=== PATIENT | female | born 1935 | race African-American/Black ===

== ENCOUNTER 2018-12-28 18:06 | Inpatient (IN) | payer OTHER ==
[~2018-12-28] VITALS: Ht 167.6 cm; Wt 70.3 kg
[2018-12-28 18:06] VITALS: BP_SYST 151
[2018-12-28] MEDS ORDERED: ACETAMINOPHEN 500 MG TABLET PO ONE (18:15)
[2018-12-28 18:28] LABS: BASOPHILS # (AUTO) 0.1 K/uL (0.0-0.2); BASOPHILS % (AUTO) 0.7 % (0.0-2.0); HEMATOCRIT 31.1 % (36-48); HEMOGLOBIN 10.3 g/dL (12.0-16.0); LYMPHOCYTES # (AUTO) 1.1 K/uL (1.0-5.5); LYMPHOCYTES % (AUTO) 7.5 % (20.5-51.5); MEAN CORPUSCULAR HEMOGLOBIN 26 pg (27-31); MEAN CORPUSCULAR HGB CONC 33 % (32-36); MEAN CORPUSCULAR VOLUME 80 fL (79.0-98.0); MONOCYTES # (AUTO) 1.4 K/uL (0.0-1.0); MONOCYTES % (AUTO) 9.5 % (1.7-9.3); NEUTROPHILS % (AUTO) 82.3 % (40.0-70.0); PLATELET COUNT (AUTO) 228 K/uL (130-430); RED BLOOD CELL COUNT(AUTO) 3.91 MIL/uL (4.2-6.2); RED CELL DISTRIBUTION WIDTH 13.6 % (9.0-15.0); WHITE BLOOD COUNT (AUTO) 14.6 K/uL (4.8-10.8)
[2018-12-28 18:42] LABS: ANION GAP 6 (5-15); CHLORIDE 98 mmol/L (98-107); CREATININE 1.48 mg/dL (0.55-1.30); GLUCOSE 243 mg/dL (70-99); POTASSIUM 3.3 mmol/L (3.5-5.1); SODIUM SERUM 133 mmol/L (136-145); UREA NITROGEN, BLOOD 30 mg/dL (8-21)
[2018-12-28] MEDS ORDERED: NS 500 ML IV ONE (18:45)
[2018-12-28] MEDS ORDERED: ACETAMINOPHEN 650 MG SUPP.RECT RC ONE ×2 (18:45→18:57)
[2018-12-28 18:46] LABS: INR 1.1 (0.8-1.2); PROTHROMBIN TIME 11.2 SECS (9.5-12.5)
[2018-12-28 18:47] LABS: ALANINE AMINOTRANSFERASE 39 U/L (12-78); ALBUMIN 2.9 g/dL (3.4-4.8); ASPARTATE AMINOTRANSFERASE 29 U/L (10-37); TOTAL BILIRUBIN 0.8 mg/dL (0.0-1.0)
[2018-12-28 18:55] LABS: BILIRUBIN,URINE NEGATIVE (NEGATIVE); BLOOD, URINE 2+ (NEGATIVE); CLARITY/URINE CLEAR (CLEAR); COLOR,URINE YELLOW (YELLOW); GLUCOSE,URINE 2+ (NEGATIVE); KETONES,URINE NEGATIVE (NEGATIVE); LEUKOCYTE ESTERASE ,URINE NEGATIVE (NEGATIVE); NITRITE, URINE NEGATIVE (NEGATIVE); PH,URINE 5.5 (5.0-8.0); PROTEIN URINE 3+ (NEGATIVE); UROBILINOGEN,URINE 0.2 (0.2-1.0)
[2018-12-28 19:11] LABS: BACTERIA,URINE MODERATE /HPF (None Seen); WBC,URINE 0-3 /HPF (0-3)
[2018-12-28] MEDS ORDERED: PIPERACILLIN/TAZO 3.375 GM in NS 50 ML IV ONE (19:15)
[2018-12-28] MEDS ORDERED: ATOR20TA64 PO (19:30)
[2018-12-28] MEDS ORDERED: LOSA25TA3 PO (19:30)
[2018-12-28] MEDS ORDERED: MECL-110 PO (19:30)
[2018-12-28] MEDS ORDERED: SENN8.6T19 PO (19:30)
[2018-12-28] MEDS ORDERED: AMLO5TAB4 PO (19:30)
[2018-12-28] MEDS ORDERED: INSU100V9 SQ (19:30)
[2018-12-28] MEDS ORDERED: POLY17PO4 PO (19:30)
[2018-12-28] MEDS ORDERED: VITD2000 PO (19:30)
[2018-12-28] MEDS ORDERED: ACET-2165 PO (19:31)
[2018-12-28] MEDS ORDERED: DOCU-144 PO (19:31)
[2018-12-28] MEDS ORDERED: SSNOVOLOG SUBCUT (19:31)
[2018-12-28] MEDS ORDERED: FLEETMO RC (19:31)
[2018-12-28] MEDS ORDERED: MOM PO (19:31)
[2018-12-28] MEDS ORDERED: BISA-79 RC (19:31)
[2018-12-28] MEDS ORDERED: PIPERACILLIN/TAZOBACTAM 3.375 GM/VIAL (ZOSYN) IV ONE (19:52)
[2018-12-28 20:47] VITALS: BP_SYST 130
[2018-12-28] MEDS: NACL 0.9% 1,000 ML IV SCH (21:03)
[2018-12-28] MEDS ORDERED: PIPERACILLIN/TAZOBACTAM 2.25 GM VIAL IV ONE (23:21)
[2018-12-28] MEDS: ZOSYN (PIPERACILLIN/TAZO) 2.25 GM in DEX-ISO (50ml) IV SCH (23:25)
[2018-12-29] VITALS (7 sets, daily range): BP systolic 138–182
[2018-12-29] MEDS: ZOSYN (PIPERACILLIN/TAZO) 2.25 GM in DEX-ISO (50ml) IV SCH (05:07)
[2018-12-29] MEDS: ACETAMINOPHEN 325 MG TABLET PO PRN (09:23)
[2018-12-29] MEDS ORDERED: DOCUSATE SODIUM 100 MG CAPSULE PO PRN (09:30)
[2018-12-29] MEDS ORDERED: ACETAMINOPHEN 325 MG TABLET PO PRN ×2 (09:30)
[2018-12-29] MEDS ORDERED: DEXTROSE 50% JECT 50 ML DISP.SYRIN IVP PRN (09:45)
[2018-12-29] MEDS ORDERED: ALBUTEROL SULFATE 0.083% 2.5 MG/3 ML VIAL.NEB INH PRN (09:45)
[2018-12-29] MEDS: ALBUTEROL SULFATE 0.083% 2.5 MG/3 ML VIAL.NEB INH SCH ×4 (09:45→20:56)
[2018-12-29] MEDS ORDERED: IPRATROPIUM BROM 0.5 MG/2.5 ML VIAL.NEB (ATROVENT) INH PRN (09:45)
[2018-12-29] MEDS: IPRATROPIUM BROM 0.5 MG/2.5 ML VIAL.NEB (ATROVENT) INH SCH ×4 (09:45→20:56)
[2018-12-29] MEDS ORDERED: amLODIPine BESYLATE 5 MG TABLET PO ONE (10:00)
[2018-12-29] MEDS: NACL 0.9% 1,000 ML IV SCH ×2 (10:15→16:26)
[2018-12-29] MEDS: PIPERACILLIN/TAZOBACTAM 2.25 GM/ D5W 50 ML IV SCH ×4 (11:49→17:57)
[2018-12-29] MEDS: INSULIN REGULAR, HUMAN 100 UNITS/ML, 10 ML VIAL (humuLIN R) SUBCUT PRN ×2 (12:09→18:01)
[2018-12-29] MEDS: ATORVASTATIN 20 MG TABLET PO SCH (20:13)
[2018-12-30] MEDS: PIPERACILLIN/TAZOBACTAM 2.25 GM/ D5W 50 ML IV SCH ×8 (00:44→18:46)
[2018-12-30] MEDS: INSULIN REGULAR, HUMAN 100 UNITS/ML, 10 ML VIAL (humuLIN R) SUBCUT PRN ×4 (00:49→18:48)
[2018-12-30 01:40] VITALS: BP_SYST 138
[2018-12-30 07:16] LABS: BILIRUBIN,URINE NEGATIVE (NEGATIVE); BLOOD, URINE 2+ (NEGATIVE); CLARITY/URINE SL CLOUDY (CLEAR); COLOR,URINE YELLOW (YELLOW); GLUCOSE,URINE 1+ (NEGATIVE); KETONES,URINE TRACE (NEGATIVE); LEUKOCYTE ESTERASE ,URINE 1+ (NEGATIVE); NITRITE, URINE NEGATIVE (NEGATIVE); PH,URINE 5.5 (5.0-8.0); PROTEIN URINE 2+ (NEGATIVE); UROBILINOGEN,URINE 0.2 (0.2-1.0)
[2018-12-30 07:21] LABS: BASOPHILS % (AUTO) 0.3 % (0.0-2.0); EOSINOPHILS % (AUTO) 0.1 % (0.0-4.0); HEMATOCRIT 25.7 % (36-48); HEMOGLOBIN 8.4 g/dL (12.0-16.0); LYMPHOCYTES # (AUTO) 1.4 K/uL (1.0-5.5); MEAN CORPUSCULAR HEMOGLOBIN 26 pg (27-31); MEAN CORPUSCULAR HGB CONC 33 % (32-36); MEAN CORPUSCULAR VOLUME 81 fL (79.0-98.0); MONOCYTES # (AUTO) 1.1 K/uL (0.0-1.0); MONOCYTES % (AUTO) 9.3 % (1.7-9.3); NEUTROPHILS # (AUTO) 9.3 K/uL (1.8-7.7); NEUTROPHILS % (AUTO) 78.3 % (40.0-70.0); PLATELET COUNT (AUTO) 213 K/uL (130-430); RED BLOOD CELL COUNT(AUTO) 3.19 MIL/uL (4.2-6.2); RED CELL DISTRIBUTION WIDTH 13.9 % (9.0-15.0); WHITE BLOOD COUNT (AUTO) 11.9 K/uL (4.8-10.8)
[2018-12-30 07:45] VITALS: BP_SYST 154
[2018-12-30 07:45] LABS: ALANINE AMINOTRANSFERASE 25 U/L (12-78); ALBUMIN 2.1 g/dL (3.4-4.8); ANION GAP 6 (5-15); ASPARTATE AMINOTRANSFERASE 22 U/L (10-37); CALCIUM 8.1 mg/dL (8.4-11.0); CHLORIDE 103 mmol/L (98-107); GLUCOSE 281 mg/dL (70-99); POTASSIUM 3.5 mmol/L (3.5-5.1); SODIUM SERUM 134 mmol/L (136-145); TOTAL BILIRUBIN 0.5 mg/dL (0.0-1.0); UREA NITROGEN, BLOOD 37 mg/dL (8-21)
[2018-12-30] MEDS: IPRATROPIUM BROM 0.5 MG/2.5 ML VIAL.NEB (ATROVENT) INH SCH ×4 (08:16→20:27)
[2018-12-30] MEDS: ALBUTEROL SULFATE 0.083% 2.5 MG/3 ML VIAL.NEB INH SCH ×4 (08:16→20:27)
[2018-12-30 08:26] LABS: BACTERIA,URINE MODERATE /HPF (None Seen)
[2018-12-30] MEDS: amLODIPine BESYLATE 5 MG TABLET PO SCH (10:27)
[2018-12-30] MEDS: LOSARTAN POTASSIUM 25 MG TABLET PO SCH (10:27)
[2018-12-30] MEDS: INSULIN GLARGINE 100 UNITS/ML 10 ML VIAL SUBCUT SCH (10:29)
[2018-12-30 11:03] VITALS: BP_SYST 171
[2018-12-30 11:46] VITALS: BP_SYST 150
[2018-12-30] MEDS: NACL 0.9% 1,000 ML IV SCH (14:10)
[2018-12-30] MEDS: ACETAMINOPHEN 325 MG TABLET PO PRN (14:14)
[2018-12-30 15:24] VITALS: BP_SYST 153
[2018-12-30 20:00] VITALS: BP_SYST 144
[2018-12-30] MEDS: ATORVASTATIN 20 MG TABLET PO SCH (21:45)
[2018-12-31] MEDS: PIPERACILLIN/TAZOBACTAM 2.25 GM/ D5W 50 ML IV SCH ×4 (00:06→06:26)
[2018-12-31] MEDS: INSULIN REGULAR, HUMAN 100 UNITS/ML, 10 ML VIAL (humuLIN R) SUBCUT PRN ×4 (00:32→21:23)
[2018-12-31] MEDS: IPRATROPIUM BROM 0.5 MG/2.5 ML VIAL.NEB (ATROVENT) INH SCH ×5 (03:00→19:36)
[2018-12-31] MEDS: ALBUTEROL SULFATE 0.083% 2.5 MG/3 ML VIAL.NEB INH SCH ×4 (03:00→19:36)
[2018-12-31 03:06] VITALS: BP_SYST 147
[2018-12-31 07:57] LABS: BASOPHILS # (AUTO) 0.1 K/uL (0.0-0.2); BASOPHILS % (AUTO) 0.9 % (0.0-2.0); EOSINOPHILS % (AUTO) 0.5 % (0.0-4.0); HEMATOCRIT 23.9 % (36-48); HEMOGLOBIN 8.1 g/dL (12.0-16.0); LYMPHOCYTES # (AUTO) 1.3 K/uL (1.0-5.5); MEAN CORPUSCULAR HEMOGLOBIN 27 pg (27-31); MEAN CORPUSCULAR HGB CONC 34 % (32-36); MEAN CORPUSCULAR VOLUME 80 fL (79.0-98.0); MONOCYTES % (AUTO) 10.8 % (1.7-9.3); NEUTROPHILS # (AUTO) 6.5 K/uL (1.8-7.7); NEUTROPHILS % (AUTO) 72.8 % (40.0-70.0); PLATELET COUNT (AUTO) 204 K/uL (130-430); RED BLOOD CELL COUNT(AUTO) 2.99 MIL/uL (4.2-6.2); RED CELL DISTRIBUTION WIDTH 13.9 % (9.0-15.0)
[2018-12-31 08:01] LABS: ANION GAP 4 (5-15); CHLORIDE 104 mmol/L (98-107); CREATININE 1.16 mg/dL (0.55-1.30); GLUCOSE 206 mg/dL (70-99); POTASSIUM 3.7 mmol/L (3.5-5.1); SODIUM SERUM 134 mmol/L (136-145); UREA NITROGEN, BLOOD 34 mg/dL (8-21)
[2018-12-31 08:27] VITALS: BP_SYST 146
[2018-12-31] MEDS ORDERED: SIMETHICONE 80 MG TAB.CHEW PO PRN (08:45)
[2018-12-31] MEDS: LOSARTAN POTASSIUM 25 MG TABLET PO SCH (09:32)
[2018-12-31] MEDS: amLODIPine BESYLATE 5 MG TABLET PO SCH (09:34)
[2018-12-31 12:32] VITALS: BP_SYST 154
[2018-12-31] MEDS: NACL 0.9% 1,000 ML IV SCH (13:22)
[2018-12-31 16:47] VITALS: BP_SYST 158
[2018-12-31] MEDS: INSULIN GLARGINE 100 UNITS/ML 10 ML VIAL SUBCUT SCH (17:49)
[2018-12-31 20:00] VITALS: BP_SYST 148
[2018-12-31] MEDS: ATORVASTATIN 20 MG TABLET PO SCH (21:20)
[2018-12-31 23:40] VITALS: BP_SYST 144
[2019-01-01] MEDS: NACL 0.9% 1,000 ML IV SCH ×2 (03:41→10:35)
[2019-01-01] MEDS: ACETAMINOPHEN 325 MG TABLET PO PRN ×2 (03:45→10:41)
[2019-01-01 07:34] LABS: BASOPHILS # (AUTO) 0.1 K/uL (0.0-0.2); BASOPHILS % (AUTO) 0.8 % (0.0-2.0); EOSINOPHILS # (AUTO) 0.1 K/uL (0.0-0.4); EOSINOPHILS % (AUTO) 1.2 % (0.0-4.0); HEMATOCRIT 25.9 % (36-48); HEMOGLOBIN 8.7 g/dL (12.0-16.0); LYMPHOCYTES # (AUTO) 1.6 K/uL (1.0-5.5); MEAN CORPUSCULAR HEMOGLOBIN 27 pg (27-31); MEAN CORPUSCULAR HGB CONC 34 % (32-36); MEAN CORPUSCULAR VOLUME 80 fL (79.0-98.0); MONOCYTES % (AUTO) 11.3 % (1.7-9.3); NEUTROPHILS # (AUTO) 6.2 K/uL (1.8-7.7); NEUTROPHILS % (AUTO) 68.7 % (40.0-70.0); PLATELET COUNT (AUTO) 252 K/uL (130-430); RED BLOOD CELL COUNT(AUTO) 3.26 MIL/uL (4.2-6.2); RED CELL DISTRIBUTION WIDTH 13.7 % (9.0-15.0)
[2019-01-01] MEDS: IPRATROPIUM BROM 0.5 MG/2.5 ML VIAL.NEB (ATROVENT) INH SCH ×5 (07:49→23:00)
[2019-01-01] MEDS: ALBUTEROL SULFATE 0.083% 2.5 MG/3 ML VIAL.NEB INH SCH ×5 (07:49→23:00)
[2019-01-01 08:12] LABS: ALANINE AMINOTRANSFERASE 34 U/L (12-78); ALBUMIN 1.8 g/dL (3.4-4.8); ANION GAP 6 (5-15); ASPARTATE AMINOTRANSFERASE 41 U/L (10-37); CALCIUM 8.2 mg/dL (8.4-11.0); CHLORIDE 103 mmol/L (98-107); CREATININE 1.02 mg/dL (0.55-1.30); GLUCOSE 119 mg/dL (70-99); POTASSIUM 3.8 mmol/L (3.5-5.1); SODIUM SERUM 136 mmol/L (136-145); TOTAL BILIRUBIN 0.4 mg/dL (0.0-1.0); UREA NITROGEN, BLOOD 29 mg/dL (8-21)
[2019-01-01 08:20] VITALS: BP_SYST 161
[2019-01-01 10:29] LABS: TOTAL IRON BIND. CAPACITY 112 ug/dL (250-450)
[2019-01-01] MEDS: PANTOPRAZOLE SODIUM 40 MG/VIAL (PROTONIX) IVP SCH (10:36)
[2019-01-01] MEDS: MEMANTINE HCL 5 MG TABLET PO SCH (10:42)
[2019-01-01] MEDS: AZITHROMYCIN 250 MG TABLET PO SCH (10:42)
[2019-01-01] MEDS: amLODIPine BESYLATE 5 MG TABLET PO SCH (10:42)
[2019-01-01] MEDS: LOSARTAN POTASSIUM 25 MG TABLET PO SCH (10:43)
[2019-01-01] MEDS: INSULIN GLARGINE 100 UNITS/ML 10 ML VIAL SUBCUT SCH (11:58)
[2019-01-01 12:35] VITALS: BP_SYST 151; BP_SYST 160
[2019-01-01] MEDS: INSULIN REGULAR, HUMAN 100 UNITS/ML, 10 ML VIAL (humuLIN R) SUBCUT PRN ×3 (13:15→23:19)
[2019-01-01 14:08] VITALS: BP_SYST 160
[2019-01-01 15:07] VITALS: BP_SYST 135
[2019-01-01] MEDS: ATORVASTATIN 20 MG TABLET PO SCH (22:11)
[2019-01-01 23:58] VITALS: BP_SYST 152
[2019-01-02] MEDS: IPRATROPIUM BROM 0.5 MG/2.5 ML VIAL.NEB (ATROVENT) INH SCH ×6 (03:00→23:00)
[2019-01-02] MEDS: ALBUTEROL SULFATE 0.083% 2.5 MG/3 ML VIAL.NEB INH SCH ×6 (03:00→23:00)
[2019-01-02] MEDS: NACL 0.9% 1,000 ML IV SCH (05:55)
[2019-01-02] MEDS: INSULIN REGULAR, HUMAN 100 UNITS/ML, 10 ML VIAL (humuLIN R) SUBCUT PRN ×4 (06:04→23:41)
[2019-01-02 07:38] LABS: BASOPHILS # (AUTO) 0.1 K/uL (0.0-0.2); BASOPHILS % (AUTO) 0.8 % (0.0-2.0); EOSINOPHILS # (AUTO) 0.1 K/uL (0.0-0.4); EOSINOPHILS % (AUTO) 1.3 % (0.0-4.0); HEMATOCRIT 24.7 % (36-48); HEMOGLOBIN 8.4 g/dL (12.0-16.0); LYMPHOCYTES # (AUTO) 1.2 K/uL (1.0-5.5); LYMPHOCYTES % (AUTO) 12.7 % (20.5-51.5); MEAN CORPUSCULAR HEMOGLOBIN 27 pg (27-31); MEAN CORPUSCULAR HGB CONC 34 % (32-36); MEAN CORPUSCULAR VOLUME 79 fL (79.0-98.0); MONOCYTES # (AUTO) 0.9 K/uL (0.0-1.0); NEUTROPHILS % (AUTO) 75.2 % (40.0-70.0); PLATELET COUNT (AUTO) 286 K/uL (130-430); RED BLOOD CELL COUNT(AUTO) 3.12 MIL/uL (4.2-6.2); RED CELL DISTRIBUTION WIDTH 13.5 % (9.0-15.0); RETICULOCYTE COUNT 1.5 % (0.5-1.5); WHITE BLOOD COUNT (AUTO) 9.3 K/uL (4.8-10.8)
[2019-01-02 07:54] LABS: ALANINE AMINOTRANSFERASE 28 U/L (12-78); ALBUMIN 1.8 g/dL (3.4-4.8); ANION GAP 6 (5-15); ASPARTATE AMINOTRANSFERASE 27 U/L (10-37); CALCIUM 8.2 mg/dL (8.4-11.0); CHLORIDE 103 mmol/L (98-107); GLUCOSE 138 mg/dL (70-99); POTASSIUM 3.5 mmol/L (3.5-5.1); SODIUM SERUM 136 mmol/L (136-145); TOTAL BILIRUBIN 0.3 mg/dL (0.0-1.0); UREA NITROGEN, BLOOD 30 mg/dL (8-21)
[2019-01-02 08:55] VITALS: BP_SYST 176
[2019-01-02] MEDS: AZITHROMYCIN 250 MG TABLET PO SCH (09:10)
[2019-01-02] MEDS: PANTOPRAZOLE SODIUM 40 MG/VIAL (PROTONIX) IVP SCH (09:10)
[2019-01-02] MEDS: MEMANTINE HCL 5 MG TABLET PO SCH (09:10)
[2019-01-02] MEDS: LOSARTAN POTASSIUM 25 MG TABLET PO SCH (09:10)
[2019-01-02] MEDS: amLODIPine BESYLATE 5 MG TABLET PO SCH (09:11)
[2019-01-02] MEDS: INSULIN GLARGINE 100 UNITS/ML 10 ML VIAL SUBCUT SCH (09:12)
[2019-01-02 11:19] VITALS: BP_SYST 144
[2019-01-02 16:02] VITALS: BP_SYST 139
[2019-01-02 21:15] VITALS: BP_SYST 145
[2019-01-02] MEDS: ATORVASTATIN 20 MG TABLET PO SCH (21:17)
[2019-01-02] MEDS: ACETAMINOPHEN 325 MG TABLET PO PRN (21:20)
[2019-01-03 00:13] VITALS: BP_SYST 136
[2019-01-03] MEDS: ALBUTEROL SULFATE 0.083% 2.5 MG/3 ML VIAL.NEB INH SCH ×4 (03:00→15:54)
[2019-01-03] MEDS: IPRATROPIUM BROM 0.5 MG/2.5 ML VIAL.NEB (ATROVENT) INH SCH ×4 (03:00→15:54)
[2019-01-03] MEDS: INSULIN REGULAR, HUMAN 100 UNITS/ML, 10 ML VIAL (humuLIN R) SUBCUT PRN ×2 (05:57→12:00)
[2019-01-03 08:00] VITALS: BP_SYST 154
[2019-01-03] MEDS: AZITHROMYCIN 250 MG TABLET PO SCH (09:10)
[2019-01-03] MEDS: PANTOPRAZOLE SODIUM 40 MG/VIAL (PROTONIX) IVP SCH (09:10)
[2019-01-03] MEDS: MEMANTINE HCL 5 MG TABLET PO SCH (09:11)
[2019-01-03] MEDS: LOSARTAN POTASSIUM 25 MG TABLET PO SCH (09:11)
[2019-01-03] MEDS: amLODIPine BESYLATE 5 MG TABLET PO SCH (09:11)
[2019-01-03] MEDS: INSULIN GLARGINE 100 UNITS/ML 10 ML VIAL SUBCUT SCH (09:14)
[2019-01-03 12:33] VITALS: BP_SYST 158
[2019-01-03 16:27] VITALS: BP_SYST 150
[2019-01-03 17:12] VITALS: BP_SYST 150
[2019-01-04 05:53] LABS: FOLATE (FOLIC ACID) 10.6 ng/mL (>3.0)
== END 2019-01-03 18:17 | DRG 70 ==
LOC: SED 18:06 → SMU 19:54 → STU 01-02 10:04
PROVIDERS: ADMIT Internal Medicine Hospice and Palliative Medicine; ATTEND Internal Medicine Hospice and Palliative Medicine
DX: G93.41 Metabolic encephalopathy (principal); J18.9 Pneumonia, unspecified organism; N39.0 Urinary tract infection, site not specified; J98.11 Atelectasis; E87.1 Hypo-osmolality and hyponatremia; F02.80 Dementia in other diseases classified elsewhere, unspecified severity, without behavioral disturbance, psychotic disturbance, mood disturbance, and anxiety; Y95 Nosocomial condition; E11.65 Type 2 diabetes mellitus with hyperglycemia; D63.8 Anemia in other chronic diseases classified elsewhere; G30.9 Alzheimer's disease, unspecified; E78.5 Hyperlipidemia, unspecified; Z87.891 Personal history of nicotine dependence; Z79.899 Other long term (current) drug therapy; Z91.012 Allergy to eggs; Z91.011 Allergy to milk products; N18.9 Chronic kidney disease, unspecified; I12.9 Hypertensive chronic kidney disease with stage 1 through stage 4 chronic kidney disease, or unspecified chronic kidney disease
CPT/HCPCS: 36415; 70450-TC; 71045; 76700-TC; 80048; 80053; 81000-TC; 82607; 82728; 82746; 82962; 83010; 83540-TC; 83550-TC; 83605; 84484; 85025; 85044-TC; 85610-TC; 85730-TC; 87040-TC; 87081; 87086; 93005; 93306; 94640; 94760; 96365; 97110-GP; 97112-GP; 97116-GP; 97530-GP; 99285; C9113; G0378; J1815; J2543; J7030; J7040; J7060; J7613; Q0144